=== PATIENT | male | born 1945 | race Caucasian/White ===

== ENCOUNTER 2021-07-09 02:13 | Outpatient (CLI) | payer MEDICARE, SELFPAY ==
--- NOTE | 2021-07-09 09:30 | DI.NM_ITS ---
Exam(s) NM BONE SCAN WHOLE BODY GRP EXAM: NM BONE SCAN WHOLE BODY GRP CLINICAL HISTORY: PROSTATE CA,C61. TECHNIQUE: Injected Dose: 25.1 mCi Tc-99m MDP Delayed Images: 2-3 hours. COMPARISON: CT CT ABDOMEN PELVIS W from 07/09/[address] ABDOMEN PELVIS W from 07/09/2021 FINDINGS: Symmetric axial uptake. Bilateral renal excretion is identified. Increased activity in both shoulder s and medial femoral tibial joint spaces, consistent with the degenerative changes. No focal area of intense suspicious uptake is seen. IMPRESSION: 1. No evidence of metastatic disease. DATA REPOSITORY:
[2021-07-09] MEDS: Breeza Beverage 473 ML BTL PO (09:56)
[2021-07-09] MEDS: Omnipaque 350 MG/ML 50 ML BTL PO (09:57)
[2021-07-09] MEDS: Omnipaque 350 MG/ML 100 ML BTL IJ (11:47)
[2021-07-09] MEDS: Normal Saline Flush 10 ML SYR IVP (11:48)
[2021-07-09] MEDS: Normal Saline - Diluent 50 ML VIAL IV (11:48)
--- NOTE | 2021-07-09 11:55 | DI.CT_ITS ---
Exam(s) CT ABDOMEN PELVIS W EXAM: CT ABDOMEN PELVIS W CLINICAL HISTORY: PROSTATE CA,C61. TECHNIQUE: Imaging Protocol: Axial computed tomography images with coronal and sagittal reformatted images were created and reviewed CONTRAST MATERIAL: Intravenous: Omnipaque 350 Contrast volume:100 ml Oral: yes COMPARISON: No exams were available for comparison FINDINGS: ABDOMEN: Lung Bases: Normal where visualized. Liver: Normal density. No measurable mass. Gallbladder and biliary tract: Single calcified gallstone at fundus.. Pancreas: Normal density, no abnormal calcifications or inflammatory process. Spleen: Normal. Kidneys: Normal size, contour and axis. No radiodense stones or obstructive uropathy. No masses seen. Adrenal glands: No masses seen. Abdominal Aorta: Abdominal portion non-dilated. Mild atherosclerotic changes. PELVIS: Bladder: Diffuse wall thickening.. No calculi.No focal mass. Bowel: Large quantity of stool. No obstruction or bowel wall thickening. Appendix normal. Peritoneal cavity: No ascites, collection or mesenteric inflammatory response. Bones: Prominent endplate osteophytes. No lytic or blastic lesions. Facet joint degenerative change s. Bony bridging across the left SI joint. Reproductive organs: Apparent TURP defect of the prostate. Prostate calcifications. No visible inva sive mass. Lymph nodes: Unremarkable. Impression: No evidence of metastatic disease in the abdomen or pelvis. RADIATION DOSE DELIVERED: 1,340.2mGy.cm Total DLP DATA REPOSITORY: All CT scans at this facility are submitted to the National Radiology Data Registry (NRDR) Dose Index Registry (DIR) with the [employer] ([employer]). RADIATION OPTIMIZATION: All CT scans at this facility use at least one of these dose optimization te chniques: automated exposure control; mA and/or kV adjustment per patient size (includes targeted exa ms where dose is matched to clinical indication); or iterative reconstruction.
== END 2021-07-09 02:33 ==
PROVIDERS: Visit Provider Urology
DX: C61 Malignant neoplasm of prostate (principal); K80.20 Calculus of gallbladder without cholecystitis without obstruction; K59.00 Constipation, unspecified; Z12.89 Encounter for screening for malignant neoplasm of other sites; M19.011 Primary osteoarthritis, right shoulder; M19.012 Primary osteoarthritis, left shoulder
CPT/HCPCS: 78306; 74177; J3490; Q9967

== ENCOUNTER → 2024-05-15 14:28 | Outpatient (BNVA) | payer MEDICARE, SELFPAY | PROVIDERS: PCP Family Medicine; Referring Provider Family Medicine; Visit Provider Nurse Practitioner Gerontology | DX: N40.2 Nodular prostate without lower urinary tract symptoms (principal); C61 Malignant neoplasm of prostate | CPT/HCPCS: 99443 ==